=== PATIENT | female | born 1970 | race Caucasian/White ===

== ENCOUNTER 2021-05-12 15:17 | Emergency (ER) | payer OTHER ==
[~2021-05-12] VITALS: Ht 154.9 cm; Wt 55.0 kg
--- NOTE | 2021-05-12 15:18 | NUR ---
PT BIBA FROM HOME FOR C/O BILATERAL LEG CRAMPS, DIZZINESS, LIGHT HEADED. PT STATES SHE WOKE UP AROUND 1AM WITH SEVERE LEG CRAMPS TO WHERE SHE WAS UNSTEADY ON HER FEET. PT DENIES MEDICAL HX OR MEDICATIONS. PT AXOX4, CHANGED INTO GOWN, CONNECTED TO ALL MONITORS, CALL LIGHT WITHIN REACH. 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
--- NOTE | 2021-05-12 15:30 | NUR ---
ERP AT BS
[2021-05-12] MEDS ORDERED: ACETAMINOPHEN 500 MG TABLET ONE (15:37)
[2021-05-12] MEDS ORDERED: SODIUM CHLORIDE FLUSH 10ML SYR IVF ONE (16:00)
[2021-05-12] MEDS ORDERED: ACETAMINOPHEN 500 MG TABLET PO ONE (16:00)
[2021-05-12] MEDS ORDERED: SODIUM CHLORIDE 0.9% 1,000ML IVBOLUS ONE (16:00)
[2021-05-12] MEDS ORDERED: PLEASE ENTER ALLERGIES MC SCH (16:00)
--- NOTE | 2021-05-12 16:00 | NUR ---
PT UNABLE TO VOID AT THIS TIME
[2021-05-12 16:09] LABS: BASOPHILS % (AUTO) 0 % (0-1); EOSINOPHILS % (AUTO) 0 % (1-7); LYMPHOCYTES % (AUTO) 5 % (22-44); MEAN CORPUSCULAR HEMOGLOBIN 32.3 pg (27.0-34.8); MEAN CORPUSCULAR HGB CONC 34.1 g/dL (32.4-35.8); MEAN PLATELET VOLUME 7.5 fL (7.4-10.4); MONOCYTES % (AUTO) 5 % (2-9); NEUTROPHILS % (AUTO) 89 % (42-75); PLATELET COUNT 164 x10^3/uL (130-400); RED BLOOD COUNT 3.99 x10^6/uL (3.82-5.3); RED CELL DISTRIBUTION WIDTH 12.9 % (9.6-15.2)
[2021-05-12 16:15] LABS: ALBUMIN 3.8 g/dL (3.4-5.0); ANION GAP 5 mmol/L (5-15); CALCIUM 8.1 mg/dL (8.5-10.1); CHLORIDE 106 mmol/L (98-107)
--- NOTE | 2021-05-12 16:27 | NUR ---
PT AMBULATORY TO BR WITH UPRIGHT STEADY GAIT FOR URINE SAMPLE
[2021-05-12 16:45] LABS: MICROSCOPIC AUTO
[2021-05-12 17:06] VITALS: BP 100/59
--- NOTE | 2021-05-12 17:49 | NUR ---
erp at for recheck
--- NOTE | 2021-05-12 18:07 | NUR ---
Patient given discharge instructions and rx, they have confirmed that they understand the instructions. Patient ambulatory with steady gait.
== END 2021-05-12 18:08 | disposition home or self-care (01) ==
LOC: ED 18:02
DX: M79.10 Myalgia, unspecified site (principal); R50.9 Fever, unspecified; M79.661 Pain in right lower leg; M79.662 Pain in left lower leg
CPT/HCPCS: 36415; 80048; 81001; 82040; 85025; 87040; 87086; 96360; 99283; J7030